=== PATIENT | female | born 1965 ===

== ENCOUNTER 2024-06-24 10:48 | Outpatient (AMB) | payer BC, SELFPAY ==
[2024-06-24 10:52] VITALS: BP 132/74; PULSE 83; O2SAT 95; BMI 28.1
--- NOTE | 2024-06-24 10:52 | A.OFFVIS_ITS ---
Vital Signs 06/24/24 10:52 Height 5 ft 8 in Weight 185 lb BMI 28.1 BP 132/74 Blood Pressure Location Lt brachial Position Sitting Pulse 83 Pulse Source Pulse Oximeter Pulse Oximetry (%) 95 Oxygen Delivery Method Room Air Intake Visit Reasons: Low Back/Hip Pain Allergies Penicillins Allergy (Intermediate, Verified 06/24/24 10:54) Hives Medication List - Last Reconciled 06/24/24 by Ayala Wolfe famotidine 40 mg PO DAILY omeprazole 20 mg PO DAILY sertraline (Zoloft) 150 mg PO DAILY HPI Comments Details: Martha is a very pleasant 58-year-old female who presents to the office today for evaluation management of her right lower back pain. She has been suffering with this pain for approximately 3 months Recently evaluated by Dr. Vidal and diagnosed with right sacroiliac joint dysfunction. She underwent therapeutic right SIJ injection one-week ago with minimal improvement. Prior to the injection she was very limited with her mobility and spent a good portion of her day lying in bed as it was painful to walk or sit. She has also recently been evaluated in [place] by a neurosurgeon. They also believe she has SI joint dysfunction but are requesting that Dr. Vidal do a diagnostic injection to confirm. They have also ordered a CT scan for further evaluation, this is scheduled for next week. Steroid injection of the right hip several weeks ago with no improvement of her symptoms. Endorses 8/10 pain over right PSIS with radiation posteriorly down the thigh to the level of the knee and radiation around the front to the groin. Pain in is worse with sitting, walking and climbing stairs Improved with rest Taking ibuprofen and Tylenol with minimal improvement Attempted physical therapy in the past but it was too painful In terms of muscle damage condition is described as aching, throbbing. Pain is constant and worse in the morning Pain is negatively impacting patient's enjoyment of life, general activity, mood, recreational activities, relationships with people, sitting and walking Denies current use of anticoagulants Denies implantable devices, pacemaker defibrillator Review of Systems Const All systems reviewed & are unremarkable except as noted in HPI and below Physical Exam Vital Signs: Last Vital Signs Pulse 83 06/24/24 10:52 BP 132/74 06/24/24 10:52 Pulse Ox 95 06/24/24 10:52 Oxygen Delivery Method Room Air 06/24/24 10:52 BMI result Body Mass Index 28.1 General: awake, alert, oriented. Answers questions appropriately. Fully engaged in examination. Skin: warm, dry, intact HEENT: Normocephalic. Hearing intact. Cardiac: External chest normal in appearance. Respiratory: No cough, audible wheezing or stridor. Abdomen: without gross distension. MS: No obvious swelling or deformities. Able to stand on bilateral tiptoes and bilateral heels.? Able to transition from sit to stand unassisted. Ambulates with bilaterally normal heel strike and toe off Tenderness over right PSIS Nontender over midline lumbar vertebrae and lumbar paraspinal muscles [place] positive on the right Thigh thrust positive on the right SI compression positive on the right SLR negative bilaterally Neurological: Oriented to person, place, time and situation. Thought process intact. Using forearm crutches for ambulation Psychiatric: Appropriate mood and affect. Good judgment and insight. Assessment & Plan Assessment & Plan (1) Sacroiliac joint dysfunction of right side: Code(s): M53.3 - Sacrococcygeal disorders, not elsewhere classified Category: Medical Plan Martha is a very pleasant 58-year-old female who presented to the office today for evaluation management of her right lower back pain History, physical exam and provocative testing consistent with right sacroiliac joint dysfunction Diclofenac 50 mg p.o. b.i.d. as needed. Patient advised on cautions for use. Methocarbamol 500 mg p.o. t.i.d. as needed. Patient advised on cautions for use Follow up with Dr. Vidal as planned Follow up with Neurosurgery as planned Discuss treatment options with the patient, she is currently receiving interventional management with Dr. Vidal. If she would like to transfer care to our office for interventional management she can call to schedule. All questions and concerns were answered, patient agrees with the plan. Follow up in our office as needed. Medications: New methocarbamol No driving while taking this medication. Do no take with alcohol or other [employer] Depressants 500 mg PO TID PRN 90 tabs 0RF muscle spasm diclofenac potassium Take with food. Do not take with any other nonsteroidal anti-inflammatory medications 50 mg PO BID 60 tabs 0RF Coding Level of Care Code New Pt Level 4 (19780) Complex EM visit Add On G2211 Diagnoses Sacroiliac joint dysfunction of right side M53.3
== END 2024-06-24 11:25 | disposition home or self-care (01) ==
PROVIDERS: PCP Nurse Practitioner Adult Health; Referring Provider Nurse Practitioner Adult Health; Visit Provider Registered Nurse Emergency
DX: M53.3 Sacrococcygeal disorders, not elsewhere classified (principal)
CPT/HCPCS: 99204

== ENCOUNTER → 2024-06-24 10:48 | Outpatient (BNVA) | payer BC, SELFPAY | PROVIDERS: PCP Nurse Practitioner Adult Health; Referring Provider Nurse Practitioner Adult Health; Visit Provider Registered Nurse Emergency ==